=== PATIENT | male | born 1955 | race Caucasian/White ===

== ENCOUNTER 2016-10-24 08:47 | Emergency (ER) | payer OTHER ==
[2016-10-24 09:39] VITALS: BP 145/78
[2016-10-24] MEDS ORDERED: Albuterol/Ipratropium 3.0-0.5 MG/3 ML Neb Soln NEB ONE (12:43)
--- NOTE | 2016-10-26 13:48 | CR ---
INDICATION: Alpha-1 antitrypsin deficiency. COPD. New shortness of breath. CHEST, PA AND LATERAL: Do not have any prior examinations for comparison. The heart is prominent in transverse dimension. However, no significant failure. There is bibasilar atelectatic changes or parenchymal scarring. I do not see any infiltrates. No focal consolidations. Hyperinflation consistent with COPD. IMPRESSION: 1. COPD. 2. Atelectasis or scarring over the lung bases on either side. 3. No definite consolidative processes. MTDD
--- NOTE | 2016-10-26 16:40 | ER ---
DATE SEEN: 10/24/2016 CHIEF COMPLAINT: Dizziness and shortness of breath. HISTORY OF PRESENT ILLNESS: This is a 61-year-old with chronic obstructive lung disease and alpha-1 antitrypsin deficiency, who is being followed by blasting entry specialist, Dr. Megan Salazar, and next appointment is his yearly appointment, on November 17, 2016, comes in because he has had increasing shortness of breath the last 2 to 3 days, which he noted at 30 feet horizontal walking. Yesterday and today have been the worst. He denies fever. He has mild cough. He has mild chest discomfort and in his back which radiates around from his lower back to his anterior abdomen. No history of hepatitis. No diabetes. No heart disease. He has had a history of DVTs several years ago, treated with enoxaparin for a week and then medications stopped. He is obese, 280 pounds. When he tries to walk, he gets more dyspnea than usual. He was diagnosed with alpha-1 antitrypsin deficiency 7 years ago. No history of hypothyroidism, strep throat, sinus congestion, abdominal pain, GERD, nausea, vomiting, diarrhea, constipation, blood in the stool, black tarry stool, dysuria, frequency, urgency, musculoskeletal aches, joint aches, depression. CURRENT MEDICATIONS: 1. Albuterol. 2. Ventolin. 3. Mometasone. 4. Nasonex. 5. Cozaar - losartan. 6. Fluticasone and salmeterol - Advair 250/50 (Diskus). 7. Trazodone 50 mg at bedtime. 8. Tamsulosin 0.4 mg daily (Flomax). 9. Prolastin-C, alpha-1 proteinase inhibitor. REVIEW OF SYSTEMS: Negative except as noted above. PHYSICAL EXAMINATION: VITAL SIGNS: Blood pressure 145/78, heart rate 67, respirations 18, and oxygen saturation 95% on room air. GENERAL: Alert man. Mild distress. He has chosen to turn the oxygen off, put nasal cannula in his nose because it makes him feel better. He is not hypoxic. No cyanosis. He is overweight. CONSTITUTIONAL: The patient is in mild distress. No accessory muscle respiration. HEENT: Sinuses nontender. TMs normal appearance. Pharynx without erythema. Oral mucosa moist. He has markedly increased pear-shaped abdomen. LUNGS: Coarse breath sounds bilaterally with rales, without wheezes. HEART: S1, S2. No murmur. ABDOMEN: Soft. No guarding. No abdominal discomfort. EXTREMITIES: Without edema, tenderness, fullness, or compromised vascular structures. No erythema noted. DIAGNOSTIC DATA: Chest x-ray: Interstitial infiltrate noted to right lower lung and also some pneumatoceles demonstrated on inversion of the chest x-ray. D-dimer is 121 and is normal. He has 20,300 white count with PMNs 66, lymphs 24, 8 monos, 2 eosinophils, moderate macrocytosis with hemoglobin of 17.1, hematocrit 51.8, MCV 106.3, MCHC 35.2. Complete metabolic panel: Sodium 135, potassium 4.4, chloride 99, CO2 of 30, BUN/creatinine ratio 21.1, calcium 8.5, total bilirubin 1.9, AST 67, ALT 49, troponin 0.01. ASSESSMENT: 1. Fever, etiology indeterminate, probably pulmonary based. Consider interstitial infiltrate - interstitial pneumonia on the right side more notable than left. 2. Alpha-1 antitrypsin deficiency. 3. Obesity, marked increased girth of his abdomen. 4. Hypochloremia secondary to elevated CO2 - the latter CO2 has retained carbon and chloride is excreted in distal comminuted tubule exchange. 5. Macrocytosis, probably drug mediated, his alpha-1 proteinase inhibitor. 6. Chronic prostatism, bladder outlet obstruction without requiring Donahue catheterization. 7. Elevated bilirubin, etiology indeterminate. Associated elevated AST greater than ALT, 67/49. The latter would suggest perhaps issues with alcohol and/or liver enzyme abnormality from his alpha-1 antitrypsin deficiency. PLAN: Albuterol neb. The patient must have had ABGs on 3 different occasions, but respiratory therapist unable to receive. She desisted in drawing ABGs at 1300 hours. Then, the patient had urinalysis obtained at 1310 hours. The patient dismissed, for further followup in 3 to 5 days, earlier if worse. Call blasting entry specialist in the next 3 to 7 days regarding his status in the ER. Also start Augmentin 875 mg 1 tablet b.i.d., 20 tablets. This was chosen as per the FDA to avoid other medication with the potential for C[employer] PIG[employer] LOADER changes, depression and/or dysphoria, and tendon rupture or ligamentous tears, tendon tear. The patient was seen at 1000 hours. /[id number] JACK/SUDEEP
== END 2016-10-24 13:29 | disposition home or self-care (01) ==
LOC: FB.ED 08:47
DX: N40.0 Benign prostatic hyperplasia without lower urinary tract symptoms (principal); R79.89 Other specified abnormal findings of blood chemistry; E66.9 Obesity, unspecified; E88.01 Alpha-1-antitrypsin deficiency; D75.89 Other specified diseases of blood and blood-forming organs; R50.9 Fever, unspecified; E87.8 Other disorders of electrolyte and fluid balance, not elsewhere classified
CPT/HCPCS: 36415; 71020; 80053; 81001; 84443; 84484; 85025; 85379; 87086; 94640; 94664; 99284; J7620

== ENCOUNTER 2017-02-22 22:41 | Emergency (ER) | payer OTHER ==
[2017-02-22 23:11] VITALS: BP 138/64
--- NOTE | 2017-02-22 23:21 | EDM.PDOC ---
ED HPI GENERAL MEDICAL PROBLEM - General Chief Complaint: Respiratory Problem Stated Complaint: DIZZY Time Seen by Provider: 02/22/17 23:00 Source of Information: Reports: Patient History Limitations: Reports: No Limitations - History of Present Illness INITIAL COMMENTS - FREE TEXT/NARRATIVE: James comes to [facility] ED with sxs of dizziness ie lt headiness, significance unknown. He is concerned that his 02 levels are low, and reportedly has taken 02 per PROCESSOR HELPER for relief of sxs in the past. He is morbidly obese with a PMH of COPD -Asthma and alpha 1 antitrypsin deficiency, and sees a sole leveler Dr Megan Salazar in [place]. He has been compliant with meds, but MDI and nebs did not help this evening. Upon arrival, his Fi02 94% on RA, RR 20, VR 89, BP 138/64. - Related Data Allergies Allergy/AdvReac Type Severity Reaction Status Date / Time No Known Allergies Allergy Verified 02/22/17 22:54 Home Meds: Home Meds Fluticasone/Salmeterol [Advair 250-50 Diskus] 1 puff INH DAILY 05/24/16 [History ] Losartan [Cozaar] 25 mg PO DAILY 05/24/16 [History] Mometasone Furoate [Nasonex] 17 gm NS DAILY PRN 05/24/16 [History] Tamsulosin [Tamsulosin 24 Hr] 0.4 mg PO DAILY 05/24/16 [History] traZODone 50 mg PO BEDTIME PRN 05/24/16 [History] Albuterol [Ventolin HFA] 2 puff INH ASDIRECTED PRN 10/24/16 [History] Otavx-9-Cvmugmhenv Inhibitor [Prolastin C] 1,000 mg IV WEEKLY 10/24/16 [History] Albuterol/Ipratropium [DuoNeb 3.0-0.5 MG/3 ML] 3 ml INH BID PRN 02/22/17 [ History] Prednisone [IJD: Prednisone] 10 mg PO BID PRN 02/22/17 [History] Past Medical History Cardiovascular History: Reports: Hypertension Respiratory History: Reports: COPD, Sleep Apnea, Other (See Below) Other Respiratory History: Alpha 1 disease. Gastrointestinal History: Reports: Other (See Below) Other Gastrointestinal History: Crohn's Disease. Musculoskeletal History: Reports: Other (See Below) Other Musculoskeletal History: History left ankle fracture. Social & Family History - Tobacco Use Smoking Status *Q: Former Smoker Years of Tobacco use: 12 Packs/Tins Daily: 0.5 Used Tobacco, but Quit: Yes Month Tobacco Last Used: 1979 Second Hand Smoke Exposure: No - Caffeine Use Caffeine Use: Reports: Tea - Alcohol Use Days Per Week of Alcohol Use: 3 Number of Drinks Per Day: 2 Total Drinks Per Week: 6 - Recreational Drug Use Recreational Drug Use: No ED ROS GENERAL - Review of Systems Review Of Systems: See Below Constitutional: Reports: Malaise HEENT: Reports: No Symptoms Respiratory: Reports: No Symptoms Cardiovascular: Reports: Lightheadedness Endocrine: Reports: No Symptoms GI/Abdominal: Reports: No Symptoms : Reports: No Symptoms Musculoskeletal: Reports: No Symptoms Skin: Reports: No Symptoms Neurological: Reports: Dizziness Psychiatric: Reports: No Symptoms Hematologic/Lymphatic: Reports: No Symptoms Immunologic: Reports: No Symptoms ED EXAM, GENERAL - Physical Exam Exam: See Below Exam Limited By: No Limitations General Appearance: Alert, WD/WN, No Apparent Distress, Anxious Eye Exam: Bilateral Eye: Normal Inspection, PERRL Ears: Normal External Exam Nose: Normal Inspection Throat/Mouth: Normal Inspection, Normal Oropharynx, Normal Voice, No Airway Compromise Neck: Normal Inspection, Supple, Non-Tender, Full Range of Motion Respiratory/Chest: No Respiratory Distress, Lungs Clear, Normal Breath Sounds, No Accessory Muscle Use, Chest Non-Tender Cardiovascular: Regular Rate, Rhythm, No Murmur GI/Abdominal: Normal Bowel Sounds, Soft, Non-Tender, No Organomegaly, No Distention, No Mass (Male) Exam: No Hernia Rectal (Males) Exam: Deferred Back Exam: Normal Inspection Extremities: Normal Inspection Neurological: Alert, Oriented, CN II-XII Intact, Normal Cognition, Normal Gait, No Motor/Sensory Deficits Psychiatric: Normal Affect, Normal Mood Skin Exam: Warm, Dry Lymphatic: No Adenopathy Course - Vital Signs Text/Narrative:: Following assession at the [facility] ED, James was place on 02 at 4 lpm for observation. His CBC noted mild leukocytosis, BMP nonfasting and baseline. Venous BGs also baseline. His dizziness subsided with nasal 02, and he was sent home on no new meds. Last Recorded V/S: Last Vital Signs Temp 36.9 C 02/22/17 23:02 Pulse 89 02/22/17 23:02 Resp 18 02/22/17 23:02 BP 138/64 02/22/17 23:02 Pulse Ox 95 02/22/17 23:30 - Orders/Labs/Meds Orders: Active Orders 24 hr Category Date Time Status EKG Documentation Completion [RC] ASDIRECTED Care 02/22/17 23:30 Active BLOOD GAS ARTERIAL [BG] Stat Lab 02/22/17 23:29 Ordered CBC WITH AUTO DIFF [HEME] Stat Lab 02/22/17 23:45 Results EKG 12 Lead [EK] Routine Ther 02/22/17 23:29 Ordered Labs: Laboratory Tests 02/22/17 02/22/17 02/23/17 Range/Units 23:45 23:45 00:05 WBC 13.6 H (4.5-12.0) X10-3/uL RBC 4.23 L (4.30-5.75) x10(6)uL Hgb 15.4 (11.5-15.5) g/dL Hct 45.4 (30.0-51.3) % MCV 107.1 H (80-96) fL MCH 36.5 H (27.7-33.6) pg MCHC 34.1 (32.2-35.4) g/dL RDW 13.8 (11.5-15.5) % Plt Count 320 (125-369) X10(3)uL MPV 9.9 (7.4-10.4) fL Add Manual Diff Yes VBG pH Cancelled VBG pCO2 Cancelled VBG pO2 Cancelled VBG HCO3 Cancelled VBG O2 Saturation Cancelled VBG Base Excess Cancelled O2 Delivery Device Cancelled Oxygen Flow Rate Cancelled Sodium 134 L (135-145) mmol/L Potassium 3.5 (3.5-5.3) mmol/L Chloride 99 L (100-110) mmol/L Carbon Dioxide 28 (23-29) mmol/L BUN 9 D (8-23) mg/dL Creatinine 1.0 (0.6-1.3) mg/dL Est Cr Clr Drug Dosing 80.53 mL/min Estimated GFR (MDRD) > 60 (>60) BUN/Creatinine Ratio 9.0 (9-20) Glucose 179 H (80-116) mg/dL Calcium 8.3 L (8.6-10.2) mg/dL 02/23/17 Range/Units 00:05 WBC (4.5-12.0) X10-3/uL RBC (4.30-5.75) x10(6)uL Hgb (11.5-15.5) g/dL Hct (30.0-51.3) % MCV (80-96) fL MCH (27.7-33.6) pg MCHC (32.2-35.4) g/dL RDW (11.5-15.5) % Plt Count (125-369) X10(3)uL MPV (7.4-10.4) fL Add Manual Diff VBG pH 7.408 VBG pCO2 45.4 VBG pO2 39 VBG HCO3 29 VBG O2 Saturation 73 VBG Base Excess 4.0 O2 Delivery Device Nasal cannula Oxygen Flow Rate 4.0 Sodium (135-145) mmol/L Potassium (3.5-5.3) mmol/L Chloride (100-110) mmol/L Carbon Dioxide (23-29) mmol/L BUN (8-23) mg/dL Creatinine (0.6-1.3) mg/dL Est Cr Clr Drug Dosing mL/min Estimated GFR (MDRD) (>60) BUN/Creatinine Ratio (9-20) Glucose (80-116) mg/dL Calcium (8.6-10.2) mg/dL Departure - Departure Time of Disposition: 00:52 Disposition: Home, Self-Care 01 Condition: Good Clinical Impression: Dizziness, nonspecific, Obstructive sleep apnea of adult - Discharge Information Referrals: Lillie Hawkins NP [Primary Care Provider] - Forms: ED Department Discharge - Problem List & Annotations (1) COPD with asthma SNOMED Code(s): 33669537257185365 Code(s): J44.9 - CHRONIC OBSTRUCTIVE PULMONARY DISEASE, UNSPECIFIED Status : Acute Current Visit: Yes Annotation/Comment:: Follow up with sole leveler , no new meds. (2) Dizziness, nonspecific SNOMED Code(s): 545265537 Code(s): R42 - DIZZINESS AND GIDDINESS Status: Acute Current Visit: Yes Annotation/Comment:: Follow up with PCP. (3) Obstructive sleep apnea of adult SNOMED Code(s): 8749398189204 Code(s): G47.33 - OBSTRUCTIVE SLEEP APNEA (ADULT) (PEDIATRIC) Status: Acute Current Visit: Yes Annotation/Comment:: Follow up with Laboratory Chemist. - Problem List Review Problem List Initiated/Reviewed/Updated: Yes - My Orders Last 24 Hours: My Active Orders 02/22/17 23:29 BLOOD GAS ARTERIAL [BG] Stat EKG 12 Lead [EK] Routine 02/22/17 23:30 EKG Documentation Completion [RC] ASDIRECTED 02/22/17 23:45 CBC WITH AUTO DIFF [HEME] Stat - Assessment/Plan Last 24 Hours: My Active Orders 02/22/17 23:29 BLOOD GAS ARTERIAL [BG] Stat EKG 12 Lead [EK] Routine 02/22/17 23:30 EKG Documentation Completion [RC] ASDIRECTED 02/22/17 23:45 CBC WITH AUTO DIFF [HEME] Stat Plan: Follow up with Laboratory Chemist.
== END 2017-02-23 00:57 | disposition home or self-care (01) ==
LOC: FB.ED 22:41
DX: G47.33 Obstructive sleep apnea (adult) (pediatric) (principal); R42 Dizziness and giddiness; J44.9 Chronic obstructive pulmonary disease, unspecified; Z79.899 Other long term (current) drug therapy; Z87.891 Personal history of nicotine dependence
CPT/HCPCS: 36415; 80048; 82803; 85025; 93005; 99284

== ENCOUNTER 2018-08-26 20:24 | Emergency (ER) | payer OTHER ==
[2018-08-26] MEDS ORDERED: Ketorolac 60 MG/2 ML SDV IM ONE (20:41)
--- NOTE | 2018-08-26 22:48 | EDM.PDOC ---
ED HPI GENERAL MEDICAL PROBLEM - General Stated Complaint: HAND AND LEG PAIN Time Seen by Provider: 08/26/18 20:24 Source of Information: Reports: Patient History Limitations: Reports: No Limitations - History of Present Illness INITIAL COMMENTS - FREE TEXT/NARRATIVE: 63 y.o.w. male with chronic liver disease, is on the list for liver transplantation, was seen in the clinic a few days ago where a blood was done and found to be nl as per Pt. Pt came to te ED because pf bone pain at his upper forearms and left lower leg, which come and goes. Pt took Motrin without much improvement. Pt denies trauma. No N/V/D no dizziness no palpitations. No other acute med issues. BP 122/65 RR 16 Pulse ox 96% on RA Pulse 86 Temp 36.6 Onset Date: 08/24/18 Onset Time: 17:00 Duration: Day(s):, Intermittent Location: Reports: Upper Extremity, Left, Upper Extremity, Right, Lower Extremity, Left Quality: Reports: Dull, Same as Previous Episode Severity: Moderate Improves with: Reports: Medication Worsens with: Reports: Other Context: Reports: Other (Chronic liver disease, is on the Livertransplant list) Associated Symptoms: Reports: Other (bone pains) - Related Data Allergies Allergy/AdvReac Type Severity Reaction Status Date / Time ENVIRONMENTAL Allergy Other Uncoded 08/26/18 21:57 Home Meds: Home Meds Mometasone Furoate [Nasonex] 2 sprays NS DAILY PRN 05/24/16 [History] Tamsulosin [Tamsulosin 24 Hr] 0.4 mg PO DAILY 05/24/16 [History] traZODone 50 mg PO BEDTIME PRN 05/24/16 [History] Albuterol [Ventolin HFA] 2 puff INH Q4H PRN 10/24/16 [History] Rdnxx-7-Qpblyggaid Inhibitor [Prolastin C] 1,000 mg IV WEEKLY 10/24/16 [History] Albuterol/Ipratropium [DuoNeb 3.0-0.5 MG/3 ML] 1 dose INH Q4H PRN 02/22/17 [ History] Fexofenadine [Cara] 180 mg PO DAILY PRN 04/01/17 [History] Loperamide [Imodium] 4 mg PO Q6H PRN 04/01/17 [History] oxyCODONE 5 mg PO [id number] PRN #6 tab 08/26/18 [Rx] Past Medical History Cardiovascular History: Reports: Hypertension Respiratory History: Reports: Asthma, COPD, Sleep Apnea Other Respiratory History: Alpha 1 disease. Gastrointestinal History: Reports: Other (See Below) Other Gastrointestinal History: COLITIS Genitourinary History: Reports: BPH Musculoskeletal History: Reports: Arthritis Other Musculoskeletal History: History left ankle fracture. - Past Surgical History HEENT Surgical History: Reports: Adenoidectomy, Oral Surgery, Tonsillectomy GI Surgical History: Reports: Colon Other GI Surgeries/Procedures: SPLEENECTOMY Social & Family History - Caffeine Use Caffeine Use: Reports: None ED ROS GENERAL - Review of Systems Review Of Systems: See Below Constitutional: Reports: No Symptoms HEENT: Reports: No Symptoms Respiratory: Reports: No Symptoms Cardiovascular: Reports: No Symptoms Endocrine: Reports: No Symptoms GI/Abdominal: Reports: Other (ascites) : Reports: Other (Occ urinary retention for which he has an apontment with is Urologist) Musculoskeletal: Reports: Arm Pain (both sides), Other (left leg pain) Skin: Reports: No Symptoms Neurological: Reports: No Symptoms Psychiatric: Reports: No Symptoms Hematologic/Lymphatic: Reports: No Symptoms Immunologic: Reports: No Symptoms ED EXAM, GENERAL - Physical Exam Exam: See Below Exam Limited By: No Limitations General Appearance: Alert, WD/WN, Mild Distress, Moderate Distress Eye Exam: Bilateral Eye: Normal Inspection Ears: Normal External Exam Ear Exam: Bilateral Ear: Auricle Normal Nose: Normal Inspection Throat/Mouth: Normal Lips, Normal Voice, No Airway Compromise Head: Atraumatic, Normocephalic Neck: Normal Inspection, Supple, Non-Tender, Full Range of Motion Respiratory/Chest: No Respiratory Distress, Lungs Clear, Normal Breath Sounds, No Accessory Muscle Use, Chest Non-Tender Cardiovascular: Normal Peripheral Pulses, Regular Rate, Rhythm Peripheral Pulses: 2+: Brachial (R) GI/Abdominal: Normal Bowel Sounds, Distended, Other (shifting fluid waves/ Ascites) (Male) Exam: Deferred Rectal (Males) Exam: Deferred Back Exam: Normal Inspection, Full Range of Motion Extremities: Normal Inspection, Normal Range of Motion, Other (intermittant bone pain spasm at his upper extremities and left lower extremity) Neurological: Alert, Oriented, CN II-XII Intact, Normal Cognition, Normal Gait Psychiatric: Normal Affect, Normal Mood Skin Exam: Warm, Dry, Intact, Normal Color Lymphatic: No Adenopathy Course - Vital Signs Text/Narrative:: 63 y.o.w. male with chronic liver disease, is on the list for liver transplantation, was seen in the clinic a few days ago where a blood was done and found to be nl as per Pt. Pt came to te ED because pf bone pain at his upper forearms and left lower leg, which come and goes. Pt took Motrin without much improvement. Pt denies trauma. No N/V/D no dizziness no palpitations. No other acute med issues. BP 122/65 RR 16 Pulse ox 96% on RA Pulse 86 Temp 36.6 PE: WNWD W M with Ascites, forearm pain and left lower leg pain, no trauma Labs: Done a few days ago and found to be all nl Imaging: Not indicated Impression: Bone pains, H/O chronic liver disease Tx: Toradol, Pt received pain meds prescription Reexam: Improved Plan: D/C with instructions addendum: 08/27/2018 Called the pt at home to see his PMD for Ca and Mg level to be check which was not done at the clinic last week, as originally assumed. Last Recorded V/S: Last Vital Signs Temp 36.8 C 08/26/18 20:55 Pulse 79 08/26/18 22:50 Resp 16 08/26/18 22:50 BP 118/63 08/26/18 22:50 Pulse Ox 97 08/26/18 22:50 - Orders/Labs/Meds Meds: Medications Discontinued Medications Generic Name Dose Route Start Last Admin Trade Name Freq PRN Reason Stop Dose Admin Ketorolac Tromethamine 60 mg 08/26/18 20:41 08/26/18 21:15 Toradol IM 08/26/18 20:42 60 mg ONETIME ONE Administration Departure - Departure Time of Disposition: 22:46 Disposition: Home, Self-Care 01 Condition: Good Clinical Impression: Bone pain - Discharge Information Prescriptions: oxyCODONE 5 mg PO [id number] PRN #6 tab PRN Reason: for severe pain only Referrals: Lillie Hawkins NP [Primary Care Provider] - Forms: ED Department Discharge Additional Instructions: Please take Motrin for moderate pain. Oxycodone for severe pain only. Please f /u with your primary care provider. Please come back if your symptoms get worse acutely.
[2018-08-27 01:52] VITALS: BP 118/63
== END 2018-08-26 23:00 | disposition home or self-care (01) ==
LOC: FB.ED 20:24
DX: M89.8X3 Other specified disorders of bone, forearm (principal); M89.8X6 Other specified disorders of bone, lower leg; I10 Essential (primary) hypertension; J44.9 Chronic obstructive pulmonary disease, unspecified; Z91.09 Other allergy status, other than to drugs and biological substances; Z79.899 Other long term (current) drug therapy
CPT/HCPCS: 96372; 99283; J1885